=== PATIENT | male | born 1965 | race Caucasian/White ===

== ENCOUNTER 2017-01-05 12:45 | Emergency (ER) | payer MEDICARE, OTHER, MEDICAID ==
--- NOTE | ~2017-01-05 | ER ---
PATIENT'S NAME: TOMASA DUNCAN [facility] AGE: 51 Y [address] ROOM: [place] [id number] LOCATION: [facility] ADMIT DATE: 01/05/2017 ER/Outpatient Report DISCHARGE DATE: FAMILY PHYSICIAN: Anup Verdin MD ATTENDING PHYSICIAN: Uriel Bates Time of Patient's Arrival: 1245 hours. Time of Patient's Evaluation: 1315 hours. CHIEF COMPLAINT: Issues with suprapubic catheter. HISTORY OF PRESENT ILLNESS: This is a 51-year-old male who presents to the ER with his caregiver. They state that they were redressing around his suprapubic catheter and they went to cut the tape with some scissors and accidentally cut the suprapubic catheter balloon portion. They state that they have had no other troubles prior to this. The patient denies any pain at this time. They are just here needing it replaced. ALLERGIES: PENICILLIN. MEDICATIONS: Please see medication list in nurse's notes. PAST MEDICAL HISTORY: 1. Traumatic brain injury. 2. History of CVA. PAST SURGERIES: Shunt. SOCIAL HISTORY: No smoking, drug, or alcohol use. REVIEW OF SYSTEMS: Constitutional: Denies any change in weight or fatigue. : No abdominal pain. No abnormal vac drainage around the catheter. SKIN: No lesions or rashes. PHYSICAL EXAMINATION: VITAL SIGNS: Blood pressure 143/85, pulse 53, respirations 20, temperature 99 degrees tympanically, and saturations 96% on room air. Mariola Coma Score is 15. PATIENT'S NAME: TOMASA DUNCAN [facility] AGE: 51 Y [address] ROOM: [place] [address] LOCATION: [facility] ADMIT DATE: 01/05/2017 ER/Outpatient Report DISCHARGE DATE: FAMILY PHYSICIAN: Anup Verdin MD ATTENDING PHYSICIAN: Uriel Bates GENERAL: Alert, calm, well-developed male, in no acute distress. LUNGS: Clear to auscultation bilaterally. No wheezes or crackles. HEART: Regular rate and rhythm. ABDOMEN: Soft, nontender. He has good bowel sounds throughout. IMPRESSION: Replacement of suprapubic catheter. ASSESSMENT AND PLAN: We did replace the catheter with no difficulty. The patient did tolerate this well. We will dismiss him to home. They need to continue to monitor his symptoms and follow up with their primary care physician as needed. The patient and the patient's caregiver understand and agree with care. VIVIANA BRITT PA-C FOR [facility]/modl /[id number] d: 01/05/17 1854 t: 01/22/17 1214, OUTPATIENT REPORT
[~2017-01-05 12:45] MED LIST: ATIVAN 1 MG1 MG PO; CELEXA20 MG PO; COLACE100 MG PO; GEODON20 MG PO; MYRBETRIQ50 MG PO; SENNA PLUS TAB1 EACH PO; TYLENOL ARTHRI650 MG PO; VESICARE10 MG PO
== END 2017-01-05 13:28 | disposition disaster alternative care site (69) ==
LOC: GMED 12:45
PROC: 0T2BX0Z Change Drainage Device in Bladder, External Approach (ICD-10-PCS; principal; 2017-01-05)
DX: Z46.6 Encounter for fitting and adjustment of urinary device (principal); Z88.0 Allergy status to penicillin; Z88.1 Allergy status to other antibiotic agents; Z88.8 Allergy status to other drugs, medicaments and biological substances; Z86.73 Personal history of transient ischemic attack (TIA), and cerebral infarction without residual deficits; Z79.899 Other long term (current) drug therapy; Z98.890 Other specified postprocedural states